=== PATIENT | male | born 1970 | race Caucasian/White ===

== ENCOUNTER 2025-03-04 10:01 | Emergency (ER) | payer MEDICAID ==
[~2025-03-04] VITALS: Ht 162.6 cm; Wt 76.0 kg
[2025-03-04 10:10] VITALS: TEMP 36.9; O2SAT 98
[2025-03-04 10:50] VITALS: BP 110/63; PULSE 64; RESP 18; TEMP 98.4
[2025-03-04] MEDS: KETOROLAC 15MG/ML VIAL IM ONE (10:50)
[2025-03-04] MEDS: GABAPENTIN 100MG CAPSULE PO ONE (10:50)
[2025-03-04] MEDS: ACETAMINOPHEN 325MG TABLET PO ONE (10:50)
== END 2025-03-04 12:22 | disposition home or self-care (01) ==
LOC: ER 10:15
DX: G62.9 Polyneuropathy, unspecified (principal); M47.812 Spondylosis without myelopathy or radiculopathy, cervical region
CPT/HCPCS: 99285; 72125; 96372; J1885